=== PATIENT | male | born 1980 | race African-American/Black ===

== ENCOUNTER → 2023-03-09 | Outpatient (CLI) | payer OTHER, SELFPAY ==
--- NOTE | 2023-03-09 10:14 | RAD_ITS ---
EXAM: XR CHEST, 2 VIEWS CLINICAL INDICATION: RESPIRATORY ISSUES TECHNIQUE: Frontal and lateral views of the chest. COMPARISON: No relevant prior studies available. FINDINGS: LUNGS AND PLEURAL SPACES: Unremarkable. No consolidation or edema. No pneumothorax. No effusion. HEART: Unremarkable. Cardiac silhouette not enlarged. MEDIASTINUM: Central airways and mediastinal contour are unremarkable. BONES/JOINTS: Unremarkable. SOFT TISSUES: Unremarkable. RAD/Chest PA and Lateral IMPRESSION: No radiographic evidence of acute cardiopulmonary disease. Electronically Signed: Roya Leach MD at 6:17 EDT ,
--- NOTE | 2023-03-10 08:17 | PFT ---
INTRODUCTION: The patient is a 43-year-old -[place] male who presents for pulmonary function studies secondary to a diagnosis of shortness of breath. Respiratory therapy reported that the patient had difficulty performing corrective maneuvers for acceptable spirometry. Bronchodilators were used during testing. INTERPRETATION: Forced expiration spirometry demonstrates no evidence of a large airways obstructive ventilatory defect. Although there was a significant response to aerosolized bronchodilators, this appears to be more patient effort dependent, as opposed to a true bronchodilator response. Body plethysmography was performed and revealed lung volumes to be within normal limits. Diffusing capacity by single breath CO was also within normal limits. IMPRESSION: Essentially normal postbronchodilator spirometry. Lung volumes and diffusing capacity were within normal limits. The results of the patient's spirometry testing should be viewed with caution, given the patient's difficulty with testing.
== END | disposition home or self-care (01) ==
PROVIDERS: Referring Provider Chiropractor; Visit Provider Chiropractor
DX: J98.9 Respiratory disorder, unspecified (principal)
CPT/HCPCS: 71046; 94060; 94726; 94729